=== PATIENT | female | born 1945 | race Caucasian/White ===

== ENCOUNTER → 2016-10-23 | Outpatient (CLI) | payer MEDICARE, OTHER ==
[2015-08-08 17:19] VITALS: BP 133/82
[~2016-10-23] MED LIST: NORCO 325 MG-51 TA1 PO; XANAX0.5 M1 PO; ZESTRIL 10MG10 MG PO
== END ==
LOC: MAMMO 14:32
DX: Z12.31 Encounter for screening mammogram for malignant neoplasm of breast (principal)
CPT/HCPCS: G0202

== ENCOUNTER → 2017-03-18 | Outpatient (CLI) | payer MEDICARE, OTHER ==
[2015-08-08 17:19] VITALS: BP 133/82
[2017-03-18 13:16] LABS: EOS # 0.2 (0.04-0.40); EOS % 2.7 % (1.0-5.0); HEMATOCRIT 41.3 % (37.0-47.0); HEMOGLOBIN 13.3 g/dL (12.5-16.0); LYMPH# 2.5 (1.50-4.00); MEAN CELL VOLUME 95 fl (78-100); MEAN CORPUSCULAR HEMOGLOBIN 31 pg (27-31); MEAN CORPUSCULAR HGB CONC 32 g/dL (33-37); MEAN PLATELET VOLUME 10.6 fl (7.4-10.4); MONO # 0.6 (0.20-0.80); NEU # 4.1 (1.40-6.50); PLATELET COUNT 288 K/mm3 (130-400); RED BLOOD COUNT 4.36 M/mm3 (4.10-5.30); WHITE BLOOD COUNT 7.5 K/mm3 (4.8-10.8)
[2017-03-18 13:56] LABS: ALBUMIN 4.1 g/dL (3.5-5.0); BUN/CREATININE RATIO 26.2 (6.0-26.0); CALCIUM 9.5 mg/dL (8.4-10.2); POTASSIUM 3.8 mmol/L (3.6-5.0); TOTAL BILIRUBIN 0.6 mg/dL (0.2-1.3); TOTAL PROTEIN 6.9 g/dL (6.3-8.2)
== END ==
LOC: LAB 12:58
PROVIDERS: Nurse Practitioner Family
DX: I10 Essential (primary) hypertension (principal); M15.9 Polyosteoarthritis, unspecified; Z13.220 Encounter for screening for lipoid disorders

== ENCOUNTER → 2017-04-01 | Outpatient (CLI) | payer MEDICARE, OTHER ==
[2015-08-08 17:19] VITALS: BP 133/82
== END ==
LOC: RAD 07:13
DX: K76.89 Other specified diseases of liver (principal)

== ENCOUNTER → 2017-04-04 | Outpatient (CLI) | payer MEDICARE, OTHER ==
[2015-08-08 17:19] VITALS: BP 133/82
== END ==
LOC: RAD 13:22
DX: E27.9 Disorder of adrenal gland, unspecified (principal); K76.89 Other specified diseases of liver
CPT/HCPCS: Q9967

== ENCOUNTER → 2017-04-08 | Outpatient (CLI) | payer MEDICARE, OTHER ==
[2015-08-08 17:19] VITALS: BP 133/82
== END ==
LOC: RAD 15:00
DX: K76.89 Other specified diseases of liver (principal); E27.9 Disorder of adrenal gland, unspecified; Z88.2 Allergy status to sulfonamides

== ENCOUNTER → 2017-10-04 | Outpatient (CLI) | payer MEDICARE, OTHER ==
[2015-08-08 17:19] VITALS: BP 133/82
== END ==
LOC: LAB 12:32
DX: Z13.220 Encounter for screening for lipoid disorders (principal)

== ENCOUNTER → 2017-12-24 | Outpatient (CLI) | payer MEDICARE, OTHER ==
[2015-08-08 17:19] VITALS: BP 133/82
[2017-12-24 17:17] LABS: EOS # 0.3 (0.04-0.40); EOS % 4.9 % (1.0-5.0); HEMATOCRIT 42.2 % (37.0-47.0); HEMOGLOBIN 13.6 g/dL (12.5-16.0); LYMPH# 2.8 (1.50-4.00); MEAN CELL VOLUME 94 fl (78-100); MEAN CORPUSCULAR HEMOGLOBIN 30 pg (27-31); MEAN CORPUSCULAR HGB CONC 32 g/dL (33-37); MEAN PLATELET VOLUME 9.7 fl (7.4-10.4); MONO # 0.6 (0.20-0.80); NEU # 2.9 (1.40-6.50); PLATELET COUNT 288 K/mm3 (130-400); RED CELL DISTRIBUTION WIDTH 13.1 % (11.5-14.5); WHITE BLOOD COUNT 6.7 K/mm3 (4.8-10.8)
[2017-12-24 17:40] LABS: ALBUMIN 4.4 g/dL (3.5-5.0); CALCIUM 9.4 mg/dL (8.4-10.2); POTASSIUM 4.3 mmol/L (3.6-5.0); TOTAL BILIRUBIN 0.4 mg/dL (0.2-1.3); TOTAL PROTEIN 7.6 g/dL (6.3-8.2)
== END ==
LOC: LAB 17:01
PROVIDERS: Physician Assistant
DX: R42 Dizziness and giddiness (principal); I95.1 Orthostatic hypotension

== ENCOUNTER → 2017-12-27 | Outpatient (CLI) | payer MEDICARE, OTHER ==
[~2017-12-27] VITALS: Ht 157.5 cm; Wt 47.7 kg
[~2017-12-27] MED LIST changes: +METOPROLOL SUCC50 M1 PO
[2017-12-27 09:00] VITALS: BP 157/79
[2017-12-27 09:08] VITALS: BP 157/79
[2017-12-27 11:16] VITALS: BP 160/84
== END ==
LOC: AMSURD 08:53
DX: I95.1 Orthostatic hypotension (principal)
CPT/HCPCS: J0834

== ENCOUNTER → 2018-01-15 | Outpatient (CLI) | payer MEDICARE, OTHER ==
[~2018-01-15] VITALS: Ht 157.5 cm; Wt 47.7 kg
[~2018-01-15] MED LIST changes: +ESTRACE0.1 MG/GM VG
[2018-01-15 12:49] VITALS: BP 107/73
[2018-01-17 13:39] VITALS: BP 156/85
== END ==
LOC: AMSURD 12:23
DX: I95.1 Orthostatic hypotension (principal); R42 Dizziness and giddiness

== ENCOUNTER → 2018-10-24 | Outpatient (CLI) | payer MEDICARE, OTHER ==
[2018-01-17 13:39] VITALS: BP 156/85
[2018-10-24 15:16] LABS: BASO # 0.1 (0.02-0.10); EOS # 0.3 (0.04-0.40); EOS % 4.2 % (1.0-5.0); HEMATOCRIT 44.5 % (37.0-47.0); HEMOGLOBIN 13.8 g/dL (12.5-16.0); LYMPH# 2.9 (1.50-4.00); MEAN CELL VOLUME 97 fl (78-100); MEAN CORPUSCULAR HEMOGLOBIN 30 pg (27-31); MEAN CORPUSCULAR HGB CONC 31 g/dL (33-37); MEAN PLATELET VOLUME 10.8 fl (7.4-10.4); MONO # 0.7 (0.20-0.80); NEU # 3.8 (1.40-6.50); PLATELET COUNT 257 K/mm3 (130-400); RED BLOOD COUNT 4.61 M/mm3 (4.10-5.30); RED CELL DISTRIBUTION WIDTH 12.7 % (11.5-14.5); WHITE BLOOD COUNT 7.8 K/mm3 (4.8-10.8)
[2018-10-24 15:27] LABS: POTASSIUM 4.2 mmol/L (3.5-5.1)
[2018-10-24 15:28] LABS: CALCIUM 9.5 mg/dL (8.3-10.5)
[2018-10-24 15:29] LABS: TOTAL PROTEIN 7.2 g/dL (6.2-8.1)
[2018-10-24 15:31] LABS: TOTAL BILIRUBIN 0.5 mg/dL (0.2-1.2)
== END ==
LOC: LAB 14:50
PROVIDERS: Physician Assistant
DX: Z00.00 Encounter for general adult medical examination without abnormal findings (principal); R53.83 Other fatigue; I10 Essential (primary) hypertension; Z12.31 Encounter for screening mammogram for malignant neoplasm of breast; M15.9 Polyosteoarthritis, unspecified; F41.9 Anxiety disorder, unspecified; D36.10 Benign neoplasm of peripheral nerves and autonomic nervous system, unspecified

== ENCOUNTER → 2018-10-27 | Outpatient (CLI) | payer MEDICARE, OTHER ==
[2018-01-17 13:39] VITALS: BP 156/85
== END ==
LOC: RAD 12:29
DX: Z00.00 Encounter for general adult medical examination without abnormal findings (principal); Z12.31 Encounter for screening mammogram for malignant neoplasm of breast; K76.89 Other specified diseases of liver; M15.9 Polyosteoarthritis, unspecified; F41.9 Anxiety disorder, unspecified; I10 Essential (primary) hypertension; D36.10 Benign neoplasm of peripheral nerves and autonomic nervous system, unspecified; R53.83 Other fatigue
CPT/HCPCS: Q9967

== ENCOUNTER → 2018-11-11 | Outpatient (CLI) | payer MEDICARE, OTHER ==
[2018-01-17 13:39] VITALS: BP 156/85
== END ==
LOC: MAMMO 13:34
DX: Z12.31 Encounter for screening mammogram for malignant neoplasm of breast (principal); N64.89 Other specified disorders of breast

== ENCOUNTER → 2018-11-27 | Outpatient (CLI) | payer MEDICARE, OTHER ==
[2018-01-17 13:39] VITALS: BP 156/85
== END ==
LOC: MAMMO 13:24
DX: N64.89 Other specified disorders of breast (principal)

== ENCOUNTER → 2020-07-22 | Outpatient (CLI) | payer MEDICARE, OTHER ==
[2018-01-17 13:39] VITALS: BP 156/85
[2020-07-22 14:53] LABS: EOS # 0.2 (0.04-0.40); EOS % 3.1 % (1.0-5.0); HEMATOCRIT 41.6 % (37.0-47.0); HEMOGLOBIN 13.2 g/dL (12.5-16.0); LYMPH# 2.8 (1.50-4.00); MEAN CELL VOLUME 95 fl (78-100); MEAN CORPUSCULAR HEMOGLOBIN 30 pg (27-31); MEAN CORPUSCULAR HGB CONC 32 g/dL (33-37); MEAN PLATELET VOLUME 10.5 fl (7.4-10.4); MONO # 0.7 (0.20-0.80); NEU # 2.4 (1.40-6.50); PLATELET COUNT 265 K/mm3 (130-400); RED BLOOD COUNT 4.38 M/mm3 (4.10-5.30); RED CELL DISTRIBUTION WIDTH 12.4 % (11.5-14.5); WHITE BLOOD COUNT 6.1 K/mm3 (4.8-10.8)
[2020-07-22 15:06] LABS: CALCIUM 9.5 mg/dL (8.3-10.5)
[2020-07-22 15:07] LABS: TOTAL PROTEIN 6.9 g/dL (6.2-8.1)
[2020-07-22 15:09] LABS: TOTAL BILIRUBIN 0.5 mg/dL (0.2-1.2)
== END ==
LOC: LAB 14:24
PROVIDERS: Physician Assistant
DX: Z13.29 Encounter for screening for other suspected endocrine disorder (principal); I10 Essential (primary) hypertension; E78.5 Hyperlipidemia, unspecified; R10.9 Unspecified abdominal pain

== ENCOUNTER → 2020-07-25 | Outpatient (CLI) | payer MEDICARE, OTHER ==
[2018-01-17 13:39] VITALS: BP 156/85
== END ==
LOC: RAD 09:11
DX: K76.89 Other specified diseases of liver (principal)
CPT/HCPCS: Q9967

== ENCOUNTER → 2020-11-03 | Outpatient (CLI) | payer MEDICARE, OTHER ==
[2020-11-03 15:55] LABS: BASO # 0.03 (0.02-0.10); EOS # 0.18 (0.04-0.40); EOS % 2.9 % (1.0-5.0); HEMOGLOBIN 14.7 g/dL (12.5-16.0); LYMPH# 2.88 (1.50-4.00); MEAN CELL VOLUME 93 fl (78-100); MEAN CORPUSCULAR HEMOGLOBIN 30 pg (27-31); MEAN CORPUSCULAR HGB CONC 33 g/dL (33-37); MONO # 0.65 (0.20-0.80); NEU # 2.46 (1.40-6.50); PLATELET COUNT 218 K/mm3 (130-400); RED BLOOD COUNT 4.86 M/mm3 (4.10-5.30); RED CELL DISTRIBUTION WIDTH 11.5 % (11.5-14.5); WHITE BLOOD COUNT 6.2 K/mm3 (4.8-10.8)
[2020-11-03 16:17] LABS: ALBUMIN 4.3 g/dL (3.4-4.8)
[2020-11-03 16:18] LABS: POTASSIUM 4.5 mmol/L (3.5-5.1)
[2020-11-03 16:19] LABS: CALCIUM 9.7 mg/dL (8.3-10.5)
[2020-11-03 16:20] LABS: TOTAL PROTEIN 7.5 g/dL (6.2-8.1)
[2020-11-03 16:22] LABS: TOTAL BILIRUBIN 0.4 mg/dL (0.2-1.2)
== END ==
LOC: LAB 15:46
PROVIDERS: Physician Assistant
DX: R42 Dizziness and giddiness (principal)

== ENCOUNTER → 2021-08-02 | Outpatient (CLI) | payer MEDICARE ==
[2021-08-02 10:09] LABS: BASO # 0.04 K/mm3 (0.02-0.10); EOS # 0.24 K/mm3 (0.04-0.40); EOS % 2.2 % (1.0-5.0); HEMOGLOBIN 13.7 g/dL (12.5-16.0); LYMPH# 2.78 K/mm3 (1.50-4.00); MEAN CELL VOLUME 96 fl (78-100); MEAN CORPUSCULAR HEMOGLOBIN 30 pg (27-31); MEAN CORPUSCULAR HGB CONC 32 g/dL (33-37); MEAN PLATELET VOLUME 10.1 fl (7.4-10.4); MONO # 0.74 K/mm3 (0.20-0.80); NEU # 7.21 K/mm3 (1.40-6.50); PLATELET COUNT 242 K/mm3 (130-400); RED CELL DISTRIBUTION WIDTH 12.5 % (11.5-14.5)
[2021-08-02 10:14] LABS: POTASSIUM 4.8 mmol/L (3.5-5.1)
[2021-08-02 10:15] LABS: ALBUMIN 3.9 g/dL (3.4-4.8)
[2021-08-02 10:16] LABS: CALCIUM 9.2 mg/dL (8.3-10.5)
[2021-08-02 10:17] LABS: TOTAL PROTEIN 6.9 g/dL (6.2-8.1)
[2021-08-02 10:19] LABS: TOTAL BILIRUBIN 0.5 mg/dL (0.2-1.2)
== END ==
LOC: RAD 08:14 → MAMMO 08:30
PROVIDERS: Physician Assistant
DX: Z13.29 Encounter for screening for other suspected endocrine disorder (principal); Z13.820 Encounter for screening for osteoporosis; Z12.31 Encounter for screening mammogram for malignant neoplasm of breast; R10.9 Unspecified abdominal pain

== ENCOUNTER → 2021-08-02 | Outpatient (CLI) | payer MEDICARE | LOC: RAD 07:31 → MAMMO 07:31 | DX: Z12.31 Encounter for screening mammogram for malignant neoplasm of breast (principal); Z13.820 Encounter for screening for osteoporosis; M81.0 Age-related osteoporosis without current pathological fracture ==

== ENCOUNTER → 2021-08-16 | Outpatient (CLI) | payer MEDICARE | LOC: LAB 09:10 | DX: R79.89 Other specified abnormal findings of blood chemistry (principal) ==

== ENCOUNTER → 2021-09-14 | Outpatient (CLI) | payer MEDICARE | LOC: RAD 10:20 | DX: M25.551 Pain in right hip (principal); M25.552 Pain in left hip ==

== ENCOUNTER → 2023-12-24 | Outpatient (CLI) | payer MEDICARE ==
[2023-12-24 11:26] LABS: BASO # 0.02 K/mm3 (0.02-0.10); EOS # 0.74 K/mm3 (0.04-0.40); EOS % 10.3 % (1.0-5.0); HEMATOCRIT 37.8 % (37.0-47.0); HEMOGLOBIN 11.9 g/dL (12.5-16.0); LYMPH# 2.33 K/mm3 (1.50-4.00); MEAN CELL VOLUME 99 fl (78-100); MEAN CORPUSCULAR HEMOGLOBIN 31 pg (27-31); MEAN CORPUSCULAR HGB CONC 32 g/dL (33-37); MEAN PLATELET VOLUME 9.4 fl (7.4-10.4); NEU # 3.49 K/mm3 (1.40-6.50); PLATELET COUNT 240 K/mm3 (130-400); RED BLOOD COUNT 3.82 M/mm3 (4.10-5.30); RED CELL DISTRIBUTION WIDTH 12.2 % (11.5-14.5); WHITE BLOOD COUNT 7.2 K/mm3 (4.8-10.8)
[2023-12-24 11:36] LABS: CALCIUM 9.9 mg/dL (8.3-10.5)
[2023-12-24 11:37] LABS: TOTAL PROTEIN 6.8 g/dL (6.2-8.1)
[2023-12-24 11:39] LABS: TOTAL BILIRUBIN 0.3 mg/dL (0.2-1.2)
== END ==
LOC: LAB 11:11
PROVIDERS: Physician Assistant
DX: I10 Essential (primary) hypertension (principal); E78.5 Hyperlipidemia, unspecified; M81.0 Age-related osteoporosis without current pathological fracture; R79.89 Other specified abnormal findings of blood chemistry; M25.551 Pain in right hip; M54.50 Low back pain, unspecified

== ENCOUNTER → 2024-01-03 | Outpatient (CLI) | payer MEDICARE, OTHER | LOC: RAD 07:59 | DX: M51.36 Other intervertebral disc degeneration, lumbar region (principal); M48.061 Spinal stenosis, lumbar region without neurogenic claudication; M41.86 Other forms of scoliosis, lumbar region ==

== ENCOUNTER 2024-01-07 10:08 | Outpatient (RCR) | payer MEDICARE, OTHER | END 2024-01-27 | disposition home or self-care (01) | LOC: PT | DX: M25.551 Pain in right hip (principal); M25.552 Pain in left hip; M54.50 Low back pain, unspecified ==

== ENCOUNTER 2024-01-28 10:02 | Outpatient (RCR) | payer MEDICARE, OTHER | END 2024-02-27 | disposition home or self-care (01) | LOC: PT | DX: M25.551 Pain in right hip (principal); M25.552 Pain in left hip ==